=== PATIENT | male | born 1970 | race Caucasian/White ===

== ENCOUNTER 2016-09-28 10:00 | Emergency (ER) | payer BC ==
[2016-09-28 10:49] LABS: HEMOGLOBIN 15.7 gm/dl (14.0-17.5); RED BLOOD COUNT 5.32 M/UL (4.20-5.50); WHITE BLOOD COUNT 4.3 K/UL (4.5-11.0)
[2016-09-28 11:07] LABS: BUN/CREATININE RATIO 15 (0-10)
== END 2016-09-28 12:25 | disposition home or self-care (01) ==
LOC: ER1 10:00
PROVIDERS: Emergency Medicine
DX: J10.1 Influenza due to other identified influenza virus with other respiratory manifestations (principal)
CPT/HCPCS: 36415; 71020; 80048; 81001; 85025; 87081; 87880; 93005; 96374; 96375; 99284; J1885; J2405

== ENCOUNTER → 2016-12-24 | Outpatient (CLI) | payer BC ==
[2016-12-24 07:44] LABS: HEMOGLOBIN 15.5 gm/dl (14.0-17.5); RED BLOOD COUNT 5.4 M/UL (4.20-5.50); WHITE BLOOD COUNT 5.2 K/UL (4.5-11.0)
[2016-12-24 08:22] LABS: BUN/CREATININE RATIO 15 (0-10)
== END ==
LOC: LAB 05:36
PROVIDERS: Family Medicine
DX: Z12.5 Encounter for screening for malignant neoplasm of prostate (principal); Z13.220 Encounter for screening for lipoid disorders; R10.30 Lower abdominal pain, unspecified
CPT/HCPCS: 36415; 80053; 80061; 81001; 84153; 85025; 87086

== ENCOUNTER 2021-01-01 09:29 | Emergency (ER) | payer BC, OTHER ==
[~2021-01-01 09:29] MED LIST: ERYTHROMYCIN O3.5 GM OU; KEFLEX CAP 500500 MG PO
[2021-01-01] MEDS ORDERED: MEDROL DOSEPAK 24 MG PO (13:05)
[2021-01-01] MEDS ORDERED: ATROVENT-HFA12.9 GM INH (13:05)
[2021-01-01] MEDS ORDERED: DELSYM30 MG/5 ML PO (13:05)
[2021-01-01] MEDS ORDERED: CIPRO HC OTIC S10 ML EARBOTH (13:08)
== END 2021-01-01 13:34 | disposition home or self-care (01) ==
LOC: ER1 09:29
DX: R05 Cough (principal); H92.01 Otalgia, right ear; Z86.16 Personal history of COVID-19
CPT/HCPCS: 71045; 99284

== ENCOUNTER → 2021-11-29 | Outpatient (CLI) | payer BC ==
[~2021-11-29] MED LIST changes: +ATROVENT-HFA12.9 GM INH; +CIPRO HC OTIC S10 ML EARBOTH; +DELSYM30 MG/5 ML PO; +MEDROL DOSEPAK 24 MG PO
[2021-11-29 08:07] LABS: HEMOGLOBIN 17.3 gm/dl (14.0-17.5); RED BLOOD COUNT 5.85 M/UL (4.20-5.50); WHITE BLOOD COUNT 5.7 K/UL (4.5-11.0)
[2021-11-29 08:52] LABS: BUN/CREATININE RATIO 22 (0-10)
== END ==
LOC: LAB 06:57
PROVIDERS: Family Medicine
DX: Z12.5 Encounter for screening for malignant neoplasm of prostate (principal); E78.2 Mixed hyperlipidemia; E55.9 Vitamin D deficiency, unspecified
CPT/HCPCS: 36415; 80053; 80061; 83735; 84153; 85027

== ENCOUNTER → 2021-12-06 | Outpatient (CLI) | payer BC ==
[2021-12-06 09:25] LABS: BUN/CREATININE RATIO 20 (0-10)
== END ==
LOC: LAB 08:44
PROVIDERS: Family Medicine
DX: R73.9 Hyperglycemia, unspecified (principal)
CPT/HCPCS: 36415; 80048; 83036

== ENCOUNTER → 2022-04-25 | Outpatient (CLI) | payer BC, OTHER ==
[2022-04-25 07:55] LABS: HEMOGLOBIN 16.4 gm/dl (14.0-17.5); RED BLOOD COUNT 5.88 M/UL (4.20-5.50); WHITE BLOOD COUNT 5.2 K/UL (4.5-11.0)
[2022-04-25 10:01] LABS: BUN/CREATININE RATIO 18 (0-10)
[2022-04-26 09:14] LABS: CREATININE, URINE 134.3 mg/dL (Not Estab.)
[2022-04-29 09:14] LABS: CHOLESTEROL, TOTAL 201 mg/dL (100-199); HDL CHOLESTEROL 45 mg/dL (>39); LDL CHOLESTEROL CALC 134 mg/dL (0-99); T. CHOL/HDL RATIO 4.5 ratio (0.0-5.0); TRIGLYCERIDES 122 mg/dL (0-149)
== END ==
LOC: LAB 07:34
PROVIDERS: Family Medicine
DX: E11.9 Type 2 diabetes mellitus without complications (principal); E55.9 Vitamin D deficiency, unspecified; E78.2 Mixed hyperlipidemia; Z79.899 Other long term (current) drug therapy
CPT/HCPCS: 36415; 80053; 80061; 82043; 82570; 82607; 83735; 85027